=== PATIENT | female | born 1980 | race American Indian/Alaskan Native ===

== ENCOUNTER 2017-03-12 20:00 | Emergency (ER) | payer OTHER ==
--- NOTE | 2017-03-12 20:44 | ED PDOC ---
Arrival/HPI - General Historian: Patient - History of Present Illness Time/Duration: < week Symptom Onset: Gradual Symptom Course: Unchanged Quality: Throbbing Severity Level: 5 - General Chief Complaint: Abnormal Skin Integrity Time Seen by Provider: 03/12/17 20:41 - History of Present Illness Narrative History of Present Illness (Text): 36 F with no PMH presents to ED with complaint of neck abscess. Patient states that it started 2 days ago and is not getting any better. Patient has gotten abscesses in the past. Patient states that the pain is 5/10 in severity and describes it as constant and throbbing. Heat compresses make it better while palpation makes it worse. Denies fever/chills, night sweats, headache, cp, sob, abd pain, n/v/d, weakness, fatigue, numbness/tingling. (Yoel Rushing) Past Medical History - Provider Review Nursing Documentation Reviewed: Yes - Travel History Have you recently traveled outside [place] w/in the past 3 mons?: No - Past History Past History: No Previous - Infectious Disease Hx of Infectious Diseases: None - Reproductive Menopause: No - Psychiatric Hx Bipolar Disorder: Yes Hx Schizophrenia: Yes Hx Substance Use: No Family/Social History - Physician Review Nursing Documentation Reviewed: Yes Family/Social History: Unknown Family HX Smoking Status: Current Some Days Smoker Hx Alcohol Use: No Hx Substance Use: No Allergies/Home Meds Allergies/Adverse Reactions: Allergies seasonal Allergy (Uncoded 03/12/17 20:26) CONGESTION Review of Systems - Review of Systems Constitutional: absent: Fatigue, Weight Change, Fevers, Night Sweats Eyes: absent: Vision Changes, Photophobia, Eye Pain, Other ENT: absent: Hearing Changes, Tinnitus, TMJ Pain, Voice Changes Respiratory: absent: SOB, Cough, Sputum, Wheezing, Other Cardiovascular: absent: Chest Pain, Palpitations, Edema, Calf Pain, Orthopnea, Syncope, Other Gastrointestinal: absent: Abdominal Pain, Diarrhea, Nausea, Vomiting Genitourinary Female: absent: Dysuria, Frequency Musculoskeletal: Neck Pain. absent: Arthralgias, Back Pain Skin: Abscess (neck) Neurological: absent: Headache, Dizziness, Focal Weakness Endocrine: absent: Diaphoresis, Polyuria, Polydipsia Hemo/Lymphatic: absent: Adenopathy, Easy Bleeding, Easy Bruising Psychiatric: absent: Anxiety, Depression, Suicidal Ideation Physical Exam Vital Signs Reviewed: Yes Temperature: Afebrile Blood Pressure: Normal Pulse: Regular Respiratory Rate: Normal Appearance: Positive for: Well-Appearing, Non-Toxic, Comfortable Pain Distress: Mild Mental Status: Positive for: Alert and Oriented X 3 - Systems Exam Head: Present: Atraumatic, Normocephalic Pupils: Present: PERRL Extroacular Muscles: Present: EOMI Conjunctiva: Present: Normal Ears: Present: Normal Mouth: Present: Moist Mucous Membranes Pharnyx: Present: Normal Nose (External): Present: Atraumatic Nose (Internal): Present: Normal Inspection Neck: Present: Normal Range of Motion, Trachea Midline, Other (1 x 1 cm abscess on posterior). No: MIDLINE TENDERNESS Respiratory/Chest: Present: Clear to Auscultation, Good Air Exchange. No: Respiratory Distress, Accessory Muscle Use Cardiovascular: Present: Regular Rate and Rhythm, Normal S1, S2 Abdomen: Present: Normal Bowel Sounds. No: Tenderness, Distention, Peritoneal Signs, Rebound, Guarding Back: Present: Normal Inspection. No: CVA Tenderness Upper Extremity: Present: Normal Inspection, Normal ROM, NORMAL PULSES, Neurovascularly Intact, Capillary Refill < 2s. No: Cyanosis, Edema Lower Extremity: Present: Normal Inspection, NORMAL PULSES, Neurovascularly Intact, Capillary Refill < 2 s Neurological: Present: GCS=15, CN II-XII Intact, Speech Normal, Motor Func Grossly Intact Skin: Present: Warm, Dry, Abscess (1 x 1 cm abscess on posterior neck) Lymphatic: No: Cervical Adenopathy, Axillary Adenopathy, Inguinal Adenopathy Psychiatric: Present: Alert, Oriented x 3, Normal Insight, Normal Concentration , Normal Affect, Normal Mood Vital Signs Temp Pulse Resp BP Pulse Ox 03/12/17 20:21 99.3 F 92 H 18 125/84 97 Medical Decision Making ED Course and Treatment: Patient seen and examined with resident. Came up with treatment and disposition plan with resident. (Frank Blanc) Neck abscess I&D was done. Patient was given ibuprofen and pepcid. RX for kefflex and bactrim DS was given. Patient to follow up with PMD in 2-3 days as well as return for wound check. (Yoel Rushing) - Medication Orders Current Medication Orders: Discontinued Medications Famotidine (Pepcid) 40 mg PO STAT STA Stop: 03/12/17 20:59 Ibuprofen (Motrin Tab) 400 mg PO STAT STA Stop: 03/12/17 21:51 - Procedure PROCEDURE NOTE (Text): PROCEDURE: INCISION & DRAINAGE Performed by the emergency provider Indication: Abscess Location: posterior neck Preparation: The area was prepped and draped in the usual sterile fashion and was cleansed with betadyne.~ Local infiltration of Lidocaine 1% was used for anesthesia. Procedure: The most fluctuant portion of the abscess was incised with a #11 scalpel. ~ Approximately 1 mL of discharge was obtained. A dressing was applied by the Resident. Post-Procedure: On exam the abscess is notably less fluctuant. The patient tolerated the procedure well, and there were no complications. Cultured: No (Yoel Rushing) Disposition/Present on Arrival - Present on Arrival Any Indicators Present on Arrival: No History of DVT/PE: No History of Uncontrolled Diabetes: No Urinary Catheter: No History of Decub. Ulcer: No History Surgical Site Infection Following: None - Disposition Have Diagnosis and Disposition been Completed?: Yes Disposition Time: 21:43 Patient Plan: Discharge - Disposition Diagnosis: Abscess Disposition: HOME/ ROUTINE Patient Problems: Current Active Problems Problem Status Onset Abscess Acute Condition: STABLE Discharge Instructions (ExitCare): Abscess Incision and Drainage (ED) Additional Instructions: Patient is medically stable for discharge. Patient is to take new medications kefflex 500 mg by mouth three times per day for 7 days and bactrim DS by mouth twice per day for 7 days. Patient is to follow up with Primary medical doctor within 2-3 days. Patient also to return in a few days for wound check. Patient may change dressing as needed. Keep area clean and dry. All instructions were discussed with patient in detail. She verbalized understanding and agreement. Prescriptions: Cephalexin [Keflex] 500 mg PO TID #21 capsule Sulfamethoxazole/Trimethoprim [Bactrim DS 800 mg-160 mg] 1 tab PO BID #14 tab
[2017-03-12 22:23] VITALS: BP 121/75; PULSE 85; RESP 16; TEMP 98; O2SAT 98
[2017-03-12 22:28] VITALS: BMI 30.7
== END 2017-03-12 22:29 | disposition home or self-care (01) ==
LOC: ED 20:00
DX: L02.11 Cutaneous abscess of neck (principal); F17.210 Nicotine dependence, cigarettes, uncomplicated

== ENCOUNTER 2017-06-19 12:24 | Emergency (ER) | payer OTHER ==
[2017-06-19 12:33] VITALS: BMI 45.1
[2017-06-19 12:41] VITALS: RESP 18; TEMP 98.2; O2SAT 98
--- NOTE | 2017-06-19 12:42 | ED PDOC ---
Arrival/HPI - General Chief Complaint: Female Genitourinary Time Seen by Provider: 06/19/17 12:28 Historian: Patient - History of Present Illness Time/Duration: Other (Several days) Symptom Onset: Gradual Symptom Course: Unchanged Severity Level: Moderate Activities at Onset: Rest Associated Symptoms (Text): 06/19/17 12:41 Patient complains of a several day history of vaginal itching, burning and discharge. New sexual partner last week. LMP sometime in February. She reports she is very irregular and this is not unusual for her. 0 para 0. No abdominal pain nausea vomiting diarrhea constipation or GI bleeding. Past Medical History - Past History Past History: No Previous - Infectious Disease Hx of Infectious Diseases: None - Psychiatric Hx Bipolar Disorder: Yes Hx Schizophrenia: Yes Hx Substance Use: No Family/Social History - Physician Review Nursing Documentation Reviewed: Yes Family/Social History: Unknown Family HX Smoking Status: Current Some Days Smoker Hx Alcohol Use: No Hx Substance Use: No Allergies/Home Meds Allergies/Adverse Reactions: Allergies seasonal Allergy (Uncoded 03/12/17 20:26) CONGESTION Review of Systems - Physician Review All systems were reviewed & negative as marked: Yes - Review of Systems Respiratory: Normal Cardiovascular: Normal Gastrointestinal: Normal Genitourinary Female: Dysuria, Vaginal Discharge. absent: Frequency, Hematuria , Vaginal Bleeding Physical Exam Vital Signs Temp Pulse Resp BP Pulse Ox 06/19/17 12:40 98.2 F 85 18 126/72 98 Temperature: Afebrile Blood Pressure: Normal Pulse: Regular Respiratory Rate: Normal Appearance: Positive for: Well-Appearing, Non-Toxic, Comfortable, Other ( Morbidly obese) Pain Distress: None Mental Status: Positive for: Alert and Oriented X 3 - Systems Exam Head: Present: Atraumatic, Normocephalic Respiratory/Chest: Present: Clear to Auscultation Cardiovascular: Present: Regular Rate and Rhythm, Normal S1, S2. No: Murmurs Abdomen: Present: Normal Bowel Sounds. No: Tenderness, Distention, Peritoneal Signs Genitourinary/Pelvic Exam: Present: Normal External Genitalia, Vaginal Discharge (Thick white cheesy consistent with fungal infection), Cervical os Closed. No: Vaginal Bleeding, Vaginal Lesions, Adenexal Tenderness, Adenexal Mass, Cervical Motion Tendernes, Odor Upper Extremity: Present: Normal Inspection. No: Cyanosis, Edema Lower Extremity: Present: Normal Inspection. No: Edema Medical Decision Making - Lab Interpretations Lab Results: Lab Results 06/19/17 12:50: Urine Color Yellow, Urine Appearance Clear, Urine pH 6.0, Ur Specific [place] 1.025, Urine Protein Negative, Urine Glucose (UA) Negative, Urine Ketones Negative, Urine Blood Negative, Urine Nitrate Negative, Urine Bilirubin Negative, Urine Urobilinogen 0.2, Ur Leukocyte Esterase Small H Disposition/Present on Arrival - Present on Arrival Any Indicators Present on Arrival: No History of DVT/PE: No History of Uncontrolled Diabetes: No Urinary Catheter: No History of Decub. Ulcer: No History Surgical Site Infection Following: None - Disposition Have Diagnosis and Disposition been Completed?: Yes Diagnosis: Candidiasis of female genitalia Disposition: HOME/ ROUTINE Disposition Time: 13:07 Patient Plan: Discharge Condition: GOOD Discharge Instructions (ExitCare): Vulvovaginal Candidiasis (ED) Additional Instructions: [id number] LOG SCALER Lotrimin or Monistat. Follow-up with PMD. Follow-up in the ER as needed. Cultures are currently pending. We'll call with positive results. Referrals: Veronica Higgins MD [Primary Care Provider] - Follow up with primary Forms: [employer] (Icelandic)
[2017-06-19 12:58] LABS: URINE BILIRUBIN NEGATIVE (NEGATIVE); URINE BLOOD NEGATIVE (NEGATIVE); URINE GLUCOSE (UA) NEGATIVE (NEGATIVE); URINE KETONE NEGATIVE (NEGATIVE); URINE LEUKOCYTE ESTERASE SMALL Leu/uL (NEGATIVE); URINE PROTEIN NEGATIVE mg/dL (<30 mg/dL); URINE UROBILINOGEN 0.2 E.U./dL (<1 E.U./dL)
[2017-06-19 13:02] LABS: URINE APPEARANCE CLEAR (CLEAR); URINE COLOR YELLOW (YELLOW)
[2017-06-19 13:14] LABS: URINE BACTERIA FEW (NEG); URINE RBC NEGATIVE /hpf (0-2)
[2017-06-19 13:30] VITALS: BP 124/69; PULSE 79
== END 2017-06-19 13:30 | disposition home or self-care (01) ==
LOC: ED 12:24
DX: B37.3 Candidiasis of vulva and vagina (principal)

== ENCOUNTER 2017-09-02 18:55 | Emergency (ER) | payer OTHER ==
[2017-09-02 18:57] VITALS: BMI 45.1
--- NOTE | 2017-09-02 19:12 | ED PDOC ---
Arrival/HPI - General Historian: Patient <Erin Rogers A - Last Filed: 09/02/17 19:09> <Wesley Jones - Last Filed: 09/02/17 19:37> - General Chief Complaint: ENT Problem Time Seen by Provider: 09/02/17 19:09 - History of Present Illness Narrative History of Present Illness (Text): 09/02/17 19:09 37yo morbidly obese female biba for lodged cotton swab in her left ear. States it became lodged, while cleaning her ear this evening. she denies pain, drainage from ear, any other complaint. (Erin Rogers A) Past Medical History - Provider Review Nursing Documentation Reviewed: Yes - Past History Past History: No Previous - Infectious Disease Hx of Infectious Diseases: None - Pulmonary Hx Asthma: Yes - Psychiatric Hx Bipolar Disorder: Yes Hx Schizophrenia: Yes Hx Substance Use: No - Anesthesia Hx Anesthesia: No <Erin Rogers A - Last Filed: 09/02/17 19:09> Family/Social History - Physician Review Nursing Documentation Reviewed: Yes Family/Social History: Unknown Family HX Smoking Status: Current Some Days Smoker Hx Alcohol Use: No Hx Substance Use: No <Erin Rogers A - Last Filed: 09/02/17 19:09> Allergies/Home Meds <Erin Rogers A - Last Filed: 09/02/17 19:09> <Wesley Jones - Last Filed: 09/02/17 19:37> Allergies/Adverse Reactions: Allergies seasonal Allergy (Uncoded 09/02/17 19:07) CONGESTION Home Medications: Home Meds Medication Instructions Recorded Confirmed No Known Home Med 09/02/17 09/02/17 Review of Systems - Physician Review All systems were reviewed & negative as marked: Yes - Review of Systems Constitutional: Normal Eyes: Normal ENT: Other (Lodged cotton swab to left ear) Respiratory: Normal Cardiovascular: Normal Gastrointestinal: Normal Genitourinary Female: Normal Musculoskeletal: Normal Skin: Normal Neurological: Normal Endocrine: Normal Hemo/Lymphatic: Normal Psychiatric: Normal <Erin Rogers A - Last Filed: 09/02/17 19:09> Physical Exam Vital Signs Reviewed: Yes Temperature: Afebrile Blood Pressure: Normal Pulse: Regular Respiratory Rate: Normal Appearance: Positive for: Well-Appearing, Non-Toxic, Comfortable Pain Distress: None Mental Status: Positive for: Alert and Oriented X 3 - Systems Exam Head: Present: Atraumatic, Normocephalic Pupils: Present: PERRL Extroacular Muscles: Present: EOMI Conjunctiva: Present: Normal Ears: Present: Other (Tip of cotton swab noted on left TM) Mouth: Present: Moist Mucous Membranes Neck: Present: Normal Range of Motion Respiratory/Chest: Present: Clear to Auscultation, Good Air Exchange. No: Respiratory Distress, Accessory Muscle Use Cardiovascular: Present: Regular Rate and Rhythm, Normal S1, S2. No: Murmurs Abdomen: Present: Normal Bowel Sounds. No: Tenderness, Distention, Peritoneal Signs Back: Present: Normal Inspection Upper Extremity: Present: Normal Inspection. No: Cyanosis, Edema Lower Extremity: Present: Normal Inspection. No: Edema Neurological: Present: GCS=15, CN II-XII Intact, Speech Normal Skin: Present: Warm, Dry, Normal Color. No: Rashes Psychiatric: Present: Alert, Oriented x 3, Normal Insight, Normal Concentration <Erin Rogers A - Last Filed: 09/02/17 19:09> Medical Decision Making <Erin Rogers A - Last Filed: 09/02/17 19:09> <Wesley Jones - Last Filed: 09/02/17 19:37> ED Course and Treatment: 09/02/17 19:11 Cotton swab was removed with small alligator clamp. No discharge. Pt tolerated . Advised to stop cleaning ear with cotton swab. (Erin Rogers A) - PA / [employer] PROFESSIONAL / Resident Statement / has reviewed & agrees with the documentation as recorded. / has examined the patient and agrees with the treatment plan. <Wesley Jones - Last Filed: 09/02/17 19:37> Disposition/Present on Arrival - Present on Arrival Any Indicators Present on Arrival: No History of DVT/PE: No History of Uncontrolled Diabetes: No Urinary Catheter: No History of Decub. Ulcer: No History Surgical Site Infection Following: None - Disposition Have Diagnosis and Disposition been Completed?: Yes Disposition Time: 19:15 Patient Plan: Discharge <Erin Rogers A - Last Filed: 09/02/17 19:09> <Wesley Jones - Last Filed: 09/02/17 19:37> - Disposition Diagnosis: Ear foreign body Disposition: HOME/ ROUTINE Condition: STABLE Discharge Instructions (ExitCare): Ear Foreign Body (ED) Additional Instructions: Follow up with your Doctor Return to ED for any new symptom Referrals: [facility] at [facility] [place] [Outside] - Follow up with primary Forms: [employer] (Thai)
[2017-09-02 19:43] VITALS: BP 136/71; PULSE 76; RESP 19; O2SAT 98
== END 2017-09-02 19:25 | disposition home or self-care (01) ==
LOC: ED 18:55
DX: T16.2XXA Foreign body in left ear, initial encounter (principal); X58.XXXA Exposure to other specified factors, initial encounter; Y93.E8 Activity, other personal hygiene; Y92.89 Other specified places as the place of occurrence of the external cause

== ENCOUNTER 2018-08-25 10:55 | Emergency (ER) | payer OTHER ==
[2018-08-25 11:20] VITALS: BP 151/84; PULSE 88; RESP 18; TEMP 98.2; O2SAT 99
[2018-08-25 11:24] VITALS: BMI 49.4
--- NOTE | 2018-08-25 12:29 | ED PDOC ---
Arrival/HPI - General Chief Complaint: Dental Pain Time Seen by Provider: 08/25/18 11:13 Historian: Patient - History of Present Illness Narrative History of Present Illness (Text): 08/25/18 14:04 38-year-old female presents today with right lower dental pain that started 2 days ago. Patient states she's been taking Tylenol for pain with improvement but she ran out of her Tylenol. Patient denies trismus or drooling. No fevers or chills. Patient states she does not have a dentist to follow-up with. No difficulty breathing or swallowing. No headaches. Patient describes the pain as throbbing and nonradiating. Symptom Onset: Sudden Symptom Course: Unchanged Past Medical History - Provider Review Nursing Documentation Reviewed: Yes - Travel History Have you recently traveled outside [place] w/in the past 3 mons?: No - Past History Past History: No Previous - Infectious Disease Hx of Infectious Diseases: None - Pulmonary Hx Asthma: Yes - Musculoskeletal/Rheumatological Hx Rheumatoid Arthritis: Yes - Psychiatric Hx Bipolar Disorder: Yes Hx Schizophrenia: Yes Hx Substance Use: No - Anesthesia Hx Anesthesia: No Family/Social History - Physician Review Nursing Documentation Reviewed: Yes Family/Social History: Unknown Family HX Smoking Status: Current Some Days Smoker Hx Alcohol Use: No Hx Substance Use: No Allergies/Home Meds Allergies/Adverse Reactions: Allergies seasonal Allergy (Uncoded 08/25/18 11:28) CONGESTION Review of Systems - Review of Systems Constitutional: absent: Fatigue, Fevers ENT: Other (dental pain). absent: Sore Throat, Sinus Congestion Respiratory: absent: SOB, Cough Cardiovascular: absent: Chest Pain, Palpitations Gastrointestinal: absent: Abdominal Pain, Nausea, Vomiting Genitourinary Female: absent: Dysuria Musculoskeletal: absent: Back Pain, Neck Pain Skin: absent: Rash, Pruritis Neurological: absent: Headache, Dizziness Psychiatric: absent: Anxiety, Depression Physical Exam Vital Signs Reviewed: Yes Vital Signs Temp Pulse Resp BP Pulse Ox 08/25/18 11:20 98.2 F 88 18 151/84 H 99 Temperature: Afebrile Blood Pressure: Hypertensive Pulse: Regular Respiratory Rate: Normal Appearance: Positive for: Well-Appearing, Non-Toxic, Comfortable Pain Distress: None Mental Status: Positive for: Alert and Oriented X 3 - Systems Exam Head: Present: Atraumatic Conjunctiva: Present: Normal Ears: Present: Normal, NORMAL TM Mouth: Present: Moist Mucous Membranes, Normal Lips, Normal Tounge. No: Drooling, Trismus, Normal Teeth (+ dental fracture noted to the 28th tooth. with minimal tenderness over tooth. no erythema, no edema. ) Pharnyx: Present: Normal. No: ERYTHEMA, EXUDATE, TONSILS ENLARGED, Muffled/Hoarse Voice Nose (External): Present: Atraumatic Nose (Internal): Present: Normal Inspection Neck: Present: Normal Range of Motion, Trachea Midline. No: Lymphadenopathy Respiratory/Chest: Present: Clear to Auscultation, Good Air Exchange. No: Respiratory Distress, Accessory Muscle Use Cardiovascular: Present: Regular Rate and Rhythm, Normal S1, S2. No: Murmurs Neurological: Present: GCS=15 Skin: Present: Warm, Dry, Normal Color. No: Rashes Psychiatric: Present: Alert, Oriented x 3 Medical Decision Making ED Course and Treatment: 08/25/18 14:06 Patient is nontoxic well-appearing in no distress with stable vital signs No trismus or drooling, moist mucous membranes Amoxicillin Motrin po I advised follow-up with the dentist within the next 2 days. I advised immediate return is symptoms worsen persist or if new concerning symptoms develop Patient verbalizes understanding of discharge instructions and need for immediate followup. Impression: Toothache Motrin every 6 hours as needed for pain Amoxicillin 1 tablet 3 times daily 10 days follow up with the primary care physician Follow-up with the dentist within the next 2 days Return immediately if symptoms worsen persist or if new concerning symptoms develop [facility] [address] [place] [address] [place] [address] [phone] Disposition/Present on Arrival - Present on Arrival Any Indicators Present on Arrival: No History of DVT/PE: No History of Uncontrolled Diabetes: No Urinary Catheter: No History of Decub. Ulcer: No History Surgical Site Infection Following: None - Disposition Have Diagnosis and Disposition been Completed?: Yes Diagnosis: Toothache Disposition: HOME/ ROUTINE Disposition Time: :23 Patient Plan: Discharge Condition: GOOD Discharge Instructions (ExitCare): Dental Pain (DC) Additional Instructions: Motrin every 6 hours as needed for pain Amoxicillin 1 tablet 3 times daily 10 days follow up with the primary care physician Follow-up with the dentist within the next 2 days Return immediately if symptoms worsen persist or if new concerning symptoms develop [facility] [address] [facility] [phone] [address] [place], [place] [phone] Prescriptions: Amoxicillin 500 mg PO TID #30 tab Ibuprofen [Motrin] 600 mg PO Q6H PRN #20 tab PRN Reason: pain/fever reduction Referrals: Richa Mayorga MD [Medical Doctor] - Follow up with primary Armando Huston DMD [Staff Provider] - Follow up with primary Gary Lua DMD [Non-Staff] - Follow up with primary Forms: [employer] (Wolof)
== END 2018-08-25 12:59 | disposition home or self-care (01) ==
LOC: ED 10:55
DX: K08.89 Other specified disorders of teeth and supporting structures (principal); F17.210 Nicotine dependence, cigarettes, uncomplicated

== ENCOUNTER 2018-11-15 12:23 | Emergency (ER) | payer OTHER ==
[2018-11-15 12:35] VITALS: BMI 47.9
--- NOTE | 2018-11-15 12:56 | ED PDOC ---
Arrival/HPI - General Chief Complaint: Female Genitourinary Time Seen by Provider: 11/15/18 12:40 Historian: Patient - History of Present Illness Narrative History of Present Illness (Text): 11/15/18 12:53 A 38 year old female, whose past medical history includes asthma, bipolar disorder, schizophrenia, and depression, presents to the emergency department with a complaint of dysuria and vaginal burning and itchiness. The patient states she has not checked for any discharge, but notes she has experienced these symptoms in the past. The patient denies fevers, chills, headache, dizziness, chest pain, shortness of breath, dyspnea on exertion, cough, abdominal pain, nausea, vomiting, diarrhea, back pain, neck pain, bowel changes, or any other complaint. PMD: Dr. Higgins Time/Duration: Other (Few days) Symptom Onset: Sudden Symptom Course: Unchanged Activities at Onset: Rest, Light Context: Home Past Medical History - Provider Review Nursing Documentation Reviewed: Yes - Past History Past History: No Previous - Infectious Disease Hx of Infectious Diseases: None - Pulmonary Hx Asthma: Yes - Musculoskeletal/Rheumatological Hx Rheumatoid Arthritis: Yes - Psychiatric Hx Bipolar Disorder: Yes Hx Schizophrenia: Yes Hx Substance Use: No - Anesthesia Hx Anesthesia: No Family/Social History - Physician Review Nursing Documentation Reviewed: Yes Family/Social History: No Known Family HX Smoking Status: Current Some Days Smoker Hx Alcohol Use: No Hx Substance Use: No Allergies/Home Meds Allergies/Adverse Reactions: Allergies seasonal Allergy (Uncoded 11/15/18 12:38) CONGESTION Review of Systems - Physician Review All systems were reviewed & negative as marked: Yes - Review of Systems Constitutional: absent: Fevers Respiratory: absent: SOB, Cough Cardiovascular: absent: Chest Pain, GREENE Gastrointestinal: absent: Abdominal Pain, Stool Changes, Diarrhea, Nausea, Vomiting Genitourinary Female: Dysuria, Hematuria, Other (Vaginal itchiness and burning). absent: Urine Output Changes Musculoskeletal: absent: Back Pain, Neck Pain Neurological: absent: Headache, Dizziness Physical Exam Appearance: Positive for: Well-Appearing, Non-Toxic, Comfortable Pain Distress: None Mental Status: Positive for: Alert and Oriented X 3 - Systems Exam Head: Present: Atraumatic, Normocephalic Pupils: Present: PERRL Extroacular Muscles: Present: EOMI Conjunctiva: Present: Normal Mouth: Present: Moist Mucous Membranes Neck: Present: Normal Range of Motion Respiratory/Chest: Present: Clear to Auscultation, Good Air Exchange. No: Respiratory Distress, Accessory Muscle Use Cardiovascular: Present: Regular Rate and Rhythm, Normal S1, S2. No: Murmurs Abdomen: No: Tenderness, Distention, Peritoneal Signs Genitourinary/Pelvic Exam: Present: Vaginal Discharge (white thick discharge. No yellow discharge. ), Other (1 cm. skin tear in the area of perenium. No active bleeding. No cellulitis. Mukultent states that she and her partner do have hard intercourse and he is well endowed. ). No: Adenexal Tenderness (Cervix normal color. Non tedner. ) Back: Present: Normal Inspection Upper Extremity: Present: Normal Inspection. No: Cyanosis, Edema Lower Extremity: Present: Normal Inspection. No: Edema Neurological: Present: GCS=15, CN II-XII Intact, Speech Normal Skin: Present: Warm, Dry, Normal Color. No: Rashes Psychiatric: Present: Alert, Oriented x 3, Normal Insight, Normal Concentration Medical Decision Making ED Course and Treatment: 11/15/18 13:01 Impression: A 38 year old female presents to the emergency department with a complaint of vaginal burning, itchiness, dysuria. Differential Diagnosis included but are not limited to: Vaginal Candidiasis; Skin tear at the area of peritoneal due to sex Plan: -- Urinalysis -- Labs -- Reassess and disposition Prior Visits: Notes and results from previous visits were reviewed. Progress Notes: 11/15/18 13:37 UA negative for UTI. Will tx for Vag Candiasis and advise to refrain from sex until skin tear heals. On re-evaluation, patient is in no acute distress. I have discussed the results and plan with the patient, who expresses understanding. Patient in agreement with plan to be discharged home. Patient is stable for dis charge. Patient was instructed to follow up with physician or return if symptoms worsen or new concerning symptoms arise. - Lab Interpretations I have reviewed the lab results: Yes - Scribe Statement The provider has reviewed the documentation as recorded by the Scribe Tennille Morejon Provider Scribe Attestation: All medical record entries made by the Scribe were at my direction and personally dictated by me. I have reviewed the chart and agree that the record accurately reflects my personal performance of the history, physical exam, medical decision making, and the department course for this patient. I have also personally directed, reviewed, and agree with the discharge instructions and disposition. Disposition/Present on Arrival - Present on Arrival Any Indicators Present on Arrival: No History of DVT/PE: No History of Uncontrolled Diabetes: No Urinary Catheter: No History of Decub. Ulcer: No History Surgical Site Infection Following: None - Disposition Have Diagnosis and Disposition been Completed?: Yes Diagnosis: Vaginal candidiasis Disposition: HOME/ ROUTINE Disposition Time: 13:38 Patient Plan: Discharge Condition: GOOD Discharge Instructions (ExitCare): Vulvovaginal Yeast Infection Additional Instructions: TERESA HENRY, thank you for letting us take care of you today. Your provider was Roland Garcia DO and you were treated for Vaginal Candiasis, Perineal Tear.. The emergency medical care you received today was directed at your acute symptoms. If you were prescribed any medication, please fill it and take as directed. It may take several days for your symptoms to resolve. Return to the Emergency Department if your symptoms worsen, do not improve, or if you have any other problems. Please contact your doctor or call one of the physicians/clinics you have been referred to that are listed on the Patient Visit Information form that is included in your discharge packet. Bring any paperwork you were given at discharge with you along with any medications you are taking to your follow up visit. Our treatment cannot replace ongoing medical care by a primary care provider outside of the emergency department. Thank you for allowing the [facility] team to be part of your care today. If you had an X-Ray or CT scan: A Radiologist will review the ED reading if any change in treatment is needed we will contact you. If you had a blood, urine, or wound culture: It will take several days for the results, if any change in treatment is needed we will contact you. If you had an STI test: It will take 48 hours for the results. Please call after 1 week if you have not heard back. Prescriptions: Clotrimazole 1% Vaginal [Lotrimin 1% Vaginal] 100 mg VG HS #1 tube Referrals: Sheree Ramesh MD [Staff Provider] - Follow up with primary Veronica Higgins MD [Family Provider] - Follow up with primary Forms: [employer] (Emir[place]), WORK NOTE
[2018-11-15 13:38] VITALS: BP 129/68; PULSE 95; RESP 18; TEMP 98.6; O2SAT 100
[2018-11-15 13:43] LABS: URINE APPEARANCE CLEAR (CLEAR); URINE BILIRUBIN NEGATIVE (NEGATIVE); URINE BLOOD NEGATIVE (NEGATIVE); URINE COLOR YELLOW (YELLOW); URINE GLUCOSE (UA) NEGATIVE (NEGATIVE); URINE LEUKOCYTE ESTERASE NEGATIVE Leu/uL (NEGATIVE); URINE PROTEIN NEGATIVE mg/dL (<30 mg/dL); URINE UROBILINOGEN 0.2 E.U./dL (<1 E.U./dL)
== END 2018-11-15 13:58 | disposition home or self-care (01) ==
LOC: ED 12:23
DX: B37.3 Candidiasis of vulva and vagina (principal)